=== PATIENT | female | born 1960 | race Caucasian/White ===

== ENCOUNTER → 2017-04-03 | Outpatient (CLI) | payer SELFPAY ==
--- NOTE | 2017-04-04 16:54 | MAM ---
EXAM DESCRIPTION: Screening Mammogram,Bilateral CLINICAL HISTORY: 56 yearsFemaleSCREENING. No complaints. No family history of breast cancer. Postmenopausal. No HRT. COMPARISON: 2-D digital screening bilateral study 02/20/2013. No prior reports available. TECHNIQUE: Bilateral CC and MLO projection full-field images, 2-D digital screening mammographic technique. CAD was utilized. FINDINGS: The breast parenchymal density pattern is: Scattered areas of fibroglandular density. No skin thickening or nipple retraction bilateral axillary and intramammary lymph nodes. No focal, stellate mass or density, focal asymmetry , and no suspicious microcalcifications or laterally. Stable mammograms since the prior study, taking into account differences in digital mammographic technique. IMPRESSION: BI-RADS CATEGORY: 2 - BENIGN FINDINGS. FOLLOW UP: Routine digital bilateral screening, one year interval from March 2017. Written communication explaining the IMPRESSION and follow-up, will be mailed to the patient and referring health care provider. According to the [employer], yearly mammograms are recommended starting at age 40 and continuing as long as a woman is in good health. Any breast change noted on a breast self-exam should be reported promptly to the patient's healthcare provider. Breast MRI is recommended for women with an approximately 20-25% or greater lifetime risk of breast cancer, including women with a strong family history of breast or ovarian cancer and women who have been treated for Hodgkin's disease. A negative mammographic report should not delay tissue diagnosis in patients with significant clinical history or physical findings. Extremely dense breast tissue limits the sensitivity of digital mammography. Electronically signed by: Morro Tyson MD 04/04/2017 4:52 PM CDT
== END | disposition home or self-care (01) ==
LOC: MAMMO 13:01
PROVIDERS: ATTEND Family Medicine
DX: Z12.31 Encounter for screening mammogram for malignant neoplasm of breast (principal)

== ENCOUNTER 2019-03-16 11:28 | Emergency (ER) | payer OTHER ==
--- NOTE | 2019-03-16 11:50 | ED.PDOC ---
History of Present Illness - General Chief Complaint: General Stated Complaint: needlestick Time Seen by Provider: 03/16/19 11:38 - History of Present Illness Initial Comments: 58 yo F who presents after needle stick while at work that occurred [employer] H AGENT on her R IF, denies any wound. 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 She has no knowledge that he has HIV or hepatitis. Pt presented per work protocol. Pt is unsure if the pt has been tested or will be tested. Denies any other sx at this time. Allergies/Adverse Reactions: Allergies Morphine Allergy (Verified 01/03/15 00:19) Home Medications: Ambulatory Orders Albuterol Inhaler [Ventolin Hfa Inhaler] 108 mcg IN PRN 03/16/19 Amitriptyline HCl [Elavil] 25 mg PO BEDTIME 03/16/19 Atenolol [Tenormin] 50 mg PO DAILY 03/16/19 Review of Systems - Review of Systems Constitutional: States: no symptoms reported. Denies: chills, fever Musculoskeletal: Denies: joint pain, joint swelling Skin: States: other - Needle stick R IF. Denies: change in color, lesions, rash Past Medical History (General) - Patient Medical History Hx Stroke: No Hx Asthma: Yes Hx Congestive Heart Failure: No Hx Hypertension: Yes Hx Diabetes: No Surgical History: Hysterectomy - Vaccination History Hx Tetanus, Diphtheria Vaccination: No Hx Influenza Vaccination: No Hx Pneumococcal Vaccination: No - Social History Hx Tobacco Use: Yes Hx Alcohol Use: No Hx Substance Use: No Hx Substance Use Treatment: No Hx Depression: No - Female History Patient : No Family Medical History - Family History Mother Family History: Unknown Living Status: Still Living Physical Exam - Physical Exam General Appearance: Alert, Well Developed, Well Nourished Eye Exam: bilateral other - No scleral icterus. Neck: full range of motion, supple Respiratory: no respiratory distress, no accessory muscle use Cardiovascular/Chest: regular rate, rhythm Extremity: other - R IF with no gross wounds, erythema, induration, fluctuance, swelling, drainage. FROM. 2+ pulses, cap refill <2sec, NVID. Neurologic: no motor/sensory deficits, alert Skin Exam: normal color, warm/dry Progress - Progress Progress: 03/16/19 12:38 I have explained and reviewed with pt plan for blood work that will not result today, discussed prophylaxis, she declined. I explained that emergent conditions may arise and to return to the ER for new, worsening, or any persistent conditions. I've explained the importance of f/u for recheck. All questions and concerns addressed at this time. Pt understands and agrees with plan. Pt well appearing, NAD, is stable for discharge. - Results/Orders Results/Orders: Hepatitis and HIV testing sent, pending results. Departure - Departure Clinical Impression: Needle stick injury Time of Disposition: 12:37 Disposition: Discharge to Home or Self Care Condition: Good Departure Forms: ED Discharge - Pt. Copy, Patient Portal Self Enrollment Referrals: Dakota Cuenca III, MD [Primary Care Provider] - 1-5 Days Home Medications: Ambulatory Orders Albuterol Inhaler [Ventolin Hfa Inhaler] 108 mcg IN PRN 03/16/19 Amitriptyline HCl [Elavil] 25 mg PO BEDTIME 03/16/19 Atenolol [Tenormin] 50 mg PO DAILY 03/16/19 Comments: [facility] As needed, if symptoms worsen
[2019-03-16] MEDS ORDERED: TETANUS,DIPHTHERIA,PERTUSSIS 1 EA SYG IM ONE (12:17)
[2019-03-16 12:59] VITALS: BP 134/89; TEMP 97; O2SAT 97
== END 2019-03-16 12:59 | disposition home or self-care (01) ==
LOC: ER 11:28
DX: Z57.8 Occupational exposure to other risk factors (principal); I10 Essential (primary) hypertension; J45.909 Unspecified asthma, uncomplicated; Y99.0 Civilian activity done for income or pay; Y92.69 Other specified industrial and construction area as the place of occurrence of the external cause; Z23 Encounter for immunization; Z87.891 Personal history of nicotine dependence; Z79.899 Other long term (current) drug therapy